=== PATIENT | male | born 1945 | race Caucasian/White ===

== ENCOUNTER 2016-12-13 22:00 | Observation (INO) ==
[2016-12-13] MEDS ORDERED: LEVOFLOXACIN INJ 750 MG in PREMIX 1 EACH IV STA (22:37)
[2016-12-13] MEDS ORDERED: SODIUM CHLORIDE 0.9% 500 ML IV STA (22:37)
[2016-12-13] MEDS ORDERED: ONDANSETRON 4 MG/2 ML VIAL IV STA (22:37)
--- NOTE | 2016-12-13 22:45 | Emergency Department Note ---
Arrival - Arrival Chief Complaint: Abdominal / Flank Pain Stated Complaint: BOWEL BLOCKAGE/CANT URINATE ED Nursing Triage Note: C/O Constipation since Tuesday- unable to urinate today. Pt reports that he has noticed blood from his rectum, but feels it is due to the severe constipation he has. Mode of Arrival: Ambulatory Limitations: No Limitations Source: Patient Time Seen by Provider: 12/13/16 22:37 - History of Present Illness HPI Narrative: This 71-year-old white male presents approximately 3 days after onset of abdominal complaints. The patient primarily has had several days of increasing constipation and abdominal cramping associated with bright red blood per rectum with straining. However, in the last 8 hours he has had onset of acute urinary retention. This is with a background history of several weeks of decline in stream, and dysuria. He denies any hematuria, chills, or fever. In conjunction with his constipation is not a person that is particularly bothered by constipation nor any other GI process. Currently he is mildly nauseated but without yenni vomiting. He appears in no acute medical distress at this time. Onset (ago): hour(s) (Patient presents 8 hours post onset of symptoms) Allergies/Adverse Reactions: Allergies Allergy/AdvReac Type Severity Reaction Status Date / Time No Known Allergies Allergy Verified 12/13/16 23:02 Home Medications: Home Medications Medication Instructions Recorded Confirmed Type No Known Home Medications [No 12/13/16 12/13/16 History Known Home Medications] Review of System - Review of System 12 point system: reviewed and no additional remarkable complaints except as stated - Review of System Constitutional: Present: as per HPI Gastrointestinal: Present: as per HPI Genitourinary male: Present: as per HPI Medical,Surgical,& Family Hx - Social History Smoking Status: Never smoker Frequency of Alcohol Use: None Type of Drug Use: None Exam Physical Examination: GENERAL: Well developed, well nourished elderly white male that appears quite uncomfortable but in no acute distress. HEENT: Normocephalic. No trauma. Moist mucous membranes. EOMI. PERRLA. ENT NML NECK: Supple. No adenopathy. CARDIAC: Regular. No murmurs. Heart rate 100 CHEST: Clear to auscultation. No respiratory distress. O2 sat 97% ABDOMEN: Soft. Diffuse abdominal tenderness with particularly significant suprapubic tenderness associated with a palpable full bladder. Hyperactive bowel sounds were noted. EXTREMITIES: No trauma. Normal ROM. No pedal edema. SKIN: No diaphoresis. No rash. NEURO: Alert. Neuro intact. No focal deficits. Vital Signs: Vital Signs Temperature 97.0 F L 12/13/16 22:06 Pulse Rate 105 H 12/13/16 22:06 Respiratory Rate 22 12/13/16 22:06 Blood Pressure 152/90 12/13/16 22:06 O2 Sat by Pulse Oximetry 97 12/13/16 22:06 Course - Reevaluation(s) Reevaluation #1: Advised patient of significant constipation and in the face of urinary retention and elevated white blood cell count patient was advised admission for both GI cleanout and evaluation. - Consultations Consultation #1: Discussed with the hospitalist service who will admit for further evaluation treatment. Results - Labs CBC & BMP: 12/13/16 22:52 12/13/16 22:52 Labs: I reviewed the laboratory noted the elevated white blood cell count - Diagnostic Findings Procedure: Abdominal x-ray: image reviewed by me, report reviewed by me ( Horrendous fecal stasis), Chest x-ray: image reviewed by me, report reviewed by me (No acute disease) Disposition Clinical Impression: Prostatitis, Acute urinary retention, Severe constipation Case discussed with: patient, patient's family Disposition: Still a Patient Condition: Stable Time of Disposition: 23:42
[2016-12-13] MEDS ORDERED: TAMSULOSIN 0.4 MG CAPSULE PO SCH (23:00)
[2016-12-13 23:01] LABS: Basophils % 0.1 % (0.0-0.8); Hematocrit 43.3 VOL% (42.0-52.0); Hemoglobin 15.5 GM/DL (14.0-18.0); Immature Granulocytes % 0.3 %; Immature Granulocytes Absolute 0.04 #; Lymphocytes % 6.8 % (21.2-54.2); Mean Corpuscular HGB Conc 35.8 GM/DL (32-36); Mean Corpuscular Hemoglobin 32 PG (27-34); Mean Corpuscular Volume 89.5 FL (87-102); Monocytes # 0.9 10*3/uL (0.11-0.8); Monocytes % 6.1 % (1.7-12.7); Neutrophils # 12.7 10*3/uL (1.4-7.4); Neutrophils % 86.7 % (38.7-73.9); Platelet Count 275 T/CUMM (130-400); Red Blood Count 4.84 MC/CUMM (3.8-5.5); Red Cell Distribution Width 12.5 % (9.3-17.3); White Blood Count 14.6 T/CUMM (4-12)
[2016-12-13 23:26] LABS: Alanine Aminotransferase 21 U/L (16-61); Albumin 3.9 G/DL (3.4-5.0); Alkaline Phosphatase 97 U/L (45-117); Amylase 75 U/L (25-115); Aspartate Amino Transferase 19 U/L (0-37); Blood Urea Nitrogen 14 MG/DL (7-18); Glucose 161 MG/DL (74-106); Osmolality,Calculated 269.4 MOS/KG (273-304); Potassium 3.7 MMOL/L (3.5-5.1); Sodium 133 MMOL/L (136-145); Total Protein 7.2 G/DL (6.4-8.3); Troponin I Only < 0.015 NG/ML (0.00-0.045)
[2016-12-13] MEDS ORDERED: ONDANSETRON 4 MG/2 ML VIAL ONE (23:32)
[2016-12-13] MEDS ORDERED: TAMSULOSIN 0.4 MG CAPSULE PO ONE (23:32)
[2016-12-13] MEDS ORDERED: LEVOFLOXACIN INJ 150 ML IV ONE (23:32)
[2016-12-13 23:36] LABS: Lactic Acid 1.8 MMOL/L (0.4-2.0)
--- NOTE | 2016-12-13 23:52 | EKG Report ---
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
[2016-12-14] MEDS ORDERED: ACETAMINOPHEN 325 MG TABLET PO PRN (00:23)
[2016-12-14] MEDS ORDERED: ONDANSETRON 4 MG/2 ML VIAL IV PRN (00:23)
[2016-12-14] MEDS ORDERED: CLORAZEPATE 3.75 MG TABLET PO PRN (00:27)
[2016-12-14] MEDS ORDERED: SODIUM PHOSPHATE ENEMA 133 ML BOTTLE RECTAL PRN (00:27)
[2016-12-14] MEDS ORDERED: SODIUM CHLORIDE 0.9% 1,000 ML IV SCH (00:30)
--- NOTE | 2016-12-14 00:35 | Hospitalist History & Physical ---
Assessment and Plan (1) Constipation Status: Acute Current Visit: Yes (2) Urinary retention Status: Acute Current Visit: Yes (3) Prostatitis Status: Acute Current Visit: Yes (4) Anxiety Status: Acute Assessment and plan: Our plan for this patient will be admission to our service. We will schedule him home in some lactulose and a soapsuds enema. We are trying to get his bowels to move. He has a Grant in place now we will keep that. Will consult urology for further evaluation of his urinary retention. Hopefully we can get him back on the road fairly soon. Recheck a KUB in the morning Current Visit: Yes History of Present Illness Chief complaint: Abdominal pain and constipation History of present illness: Mr. Fuentes is a 71 year old male with past medical history significant for Mni re's disease who is traveling to our [facility] on his way back home to [place]. Patient reports that he has been constipated and got to where that he could not have a bowel movement. Discussed so bad to where he could not urinate either. He is trying to have a bowel movement and did have some blood. He reports dizziness. He reports that he is hungry. He has a history of dizziness that, comes and goes. Patient's reports that it is anxiety induced and he had to be on Valium in the past. Secondary to his urinary retention and clear constipation I was consulted to admit him. Home Medications Medication Instructions Recorded Confirmed Type No Known Home Medications [No 12/13/16 12/13/16 History Known Home Medications] Allergies Allergy/AdvReac Type Severity Reaction Status Date / Time No Known Allergies Allergy Verified 12/13/16 23:02 Medical,Surgical,& Family Hx - Medical History Other: History of: Miscellaneous Medical Problems (Mnire's disease anxiety dizziness) - Surgical History Surgical History: noncontributory (none) - Social History Smoking Status: Never smoker Frequency of Alcohol Use: None Type of Drug Use: None 12 point system: reviewed and no additional remarkable complaints except as stated Exam - Constitutional General appearance: normal weight - Head Head exam: Present: normal inspection - Eye Eye exam: Present: EOMI Pupils: Present: SUSAN - ENT ENT exam: Present: normal exam - Neck Neck exam: Present: normal inspection - Respiratory Respiratory exam: Present: clear to auscultation bilaterally - Cardiovascular Cardiovascular exam: Present: regular rate and rhythm - GI/Abdominal GI/Abdominal exam: Present: normal bowel sounds, tenderness ( particularly in the lower quadrants) - Extremities Exam Extremities exam: Present: normal inspection - Back Exam Back exam: Present: normal inspection - Psychiatric Psychiatric exam: Present: anxious - Skin Skin exam: Present: normal color Results - Labs CBC & BMP: 12/13/16 22:52 12/13/16 22:52
[2016-12-14] MEDS: DOCUSATE SODIUM 100 MG CAPSULE PO SCH ×2 (02:30→09:47)
[2016-12-14] MEDS: LACTULOSE 20 GM/30 ML UDCUP PO SCH ×2 (02:31→09:47)
--- NOTE | 2016-12-14 06:53 | XRay Report ---
Referring Physician: Luigi Fang Exam: XR abdomen 2V Date: December 13, 2016 at 10:45 AM Reason: Generalized abdominal pain Comparison: None Findings: There is mild scattered air within the bowel but no evidence of bowel obstruction. No free air is identified. The renal shadows are largely obscured. There is mild scoliosis, but no acute osseous process is seen. Impression: There is mild scattered air within the small bowel and colon but no evidence of bowel obstruction. PROCEDURE INTERPRETED AT [facility] DEPARTMENT OF RADIOLOGY Final Report Signed by: Dr. Alis Schmitz
[2016-12-14 06:54] LABS: Basophils % 0.1 % (0.0-0.8); Hematocrit 41.5 VOL% (42.0-52.0); Hemoglobin 14.4 GM/DL (14.0-18.0); Immature Granulocytes % 0.4 %; Immature Granulocytes Absolute 0.04 #; Lymphocytes % 9.5 % (21.2-54.2); Mean Corpuscular HGB Conc 34.7 GM/DL (32-36); Mean Corpuscular Hemoglobin 32 PG (27-34); Mean Platelet Volume 10.2 FL (9.6-12.0); Monocytes # 1.2 10*3/uL (0.11-0.8); Monocytes % 11.4 % (1.7-12.7); Neutrophils # 8.4 10*3/uL (1.4-7.4); Neutrophils % 78.6 % (38.7-73.9); Platelet Count 247 T/CUMM (130-400); Red Blood Count 4.51 MC/CUMM (3.8-5.5); Red Cell Distribution Width 12.5 % (9.3-17.3); White Blood Count 10.6 T/CUMM (4-12)
--- NOTE | 2016-12-14 06:54 | XRay Report ---
Referring Physician: Luigi Fang Exam: XR chest 1V Date: December 13, 2016 at 10:45 PM Reason: Chest pain Comparison: None Findings: The cardiac silhouette is normal in size. A large hiatal hernia is suspected. There is likely minimal atelectasis adjacent to the hiatal hernia, but the lungs are otherwise clear. No pneumothorax or pleural effusion is identified. No acute osseous process is seen. Impression: Probable large hiatal hernia with minimal adjacent atelectasis. PROCEDURE INTERPRETED AT [facility] DEPARTMENT OF RADIOLOGY Final Report Signed by: Dr. Alis Schmitz
[2016-12-14 07:24] LABS: Calcium 8.9 MG/DL (8.5-10.1); Osmolality,Calculated 281.3 MOS/KG (273-304); Potassium 4.3 MMOL/L (3.5-5.1)
--- NOTE | 2016-12-14 07:50 | Urology Consultation ---
History of Present Illness - Data of Consult Consult date: 12/14/16 - Consult Narrative History of present illness: Mr. Fuentes is a 71 year old male This 71-year-old white male was from out of [facility] and passing through [facility] when he developed constipation and urinary retention and was admitted for treatment. The patient denies any difficulty voiding prior to going into urinary retention he has no past history of any serious urological problems. He has not been screened for prostate cancer and has no family history of prostate cancer. He has a Grant catheter in at the present time. His creatinine is normal and his PSA was noted be elevated at 19. I discussed the PSA elevation with him and the possibility of prostate cancer and the importance that he have a follow-up of this. There is no urinalysis available at this time to determine if there is evidence of urinary tract infection which could cause the PSA elevation .He is currently on antibiotics. I am going to get a urinalysis today and increase his Flomax to twice a day and DC the Grant catheter for trial of voiding. The patient wants to be discharged and if he can void well enough he can go home without the Grant catheter if he is unable to void I recommended he go home with the Grant catheter and a leg bag. I would also discharge him on Flomax even if he goes home with the Grant CC: Reyna Caba MD - Home Medications and Allergies Home Medications: Home Medications Medication Instructions Recorded Confirmed Type No Known Home Medications [No 12/13/16 12/13/16 History Known Home Medications] Allergies/Adverse Reactions: Allergies Allergy/AdvReac Type Severity Reaction Status Date / Time No Known Allergies Allergy Verified 12/13/16 23:02 Exam - Constitutional Vitals: Period Temp Pulse Resp BP Sys/[place] Pulse Ox Last 24 Hr 97.3 F-98.1 F 75-84 20-20 120-124/69-76 95-96 Results - Labs CBC & BMP: 12/14/16 06:07 12/14/16 06:07
[2016-12-14] MEDS ORDERED: PANTOPRAZOLE 40 MG TABLET PO SCH (09:00)
[2016-12-14] MEDS ORDERED: ENOXAPARIN 40 MG/0.4 ML SYRINGE SUBCUT SCH (09:00)
[2016-12-14] MEDS ORDERED: TAMSULOSIN 0.4 MG CAPSULE PO SCH (09:00)
--- NOTE | 2016-12-14 10:41 | XRay Report ---
XR KUB Indication: Constipation Comparison: Abdominal x-ray dated December 13, 2016 Technique: Frontal views of the abdomen Findings: Prominent hiatal hernia suggested. Nonspecific nonobstructive bowel gas pattern. Moderate amount of fecal material within the distal colon could reflect constipation. Osseous structures appear unchanged. Presumed pelvic phleboliths. IMPRESSION: As above. PROCEDURE INTERPRETED AT [facility] DEPARTMENT OF RADIOLOGY Final Report Signed by: Dr Cam Solorzano
[2016-12-14 12:10] LABS: Apearance,Urine CLEAR (Clear); Bilirubin,Urine Negative (Negative); Blood, Urine Moderate mg/dL (Negative); Glucose,Urine (UA) Negative (Negative); Ketones,Urine Negative (Negative); Mucus,Urine Occasional /LPF (Occasional); Nitrite,Urine Negative (Negative); Protein,Urine Negative; RBC,Urine 25 /HPF (0-4); Squamous Epithelial Cell,Urine Occasional /HPF (0-10); Urine Color Yellow (Yellow); Urine Specific Gravity 1.006 (1.001-1.035); Urine Urobilinogen < 2.0 EU/DL (0.2-1.0); WBC,Urine 39 /HPF (0-6)
--- NOTE | 2016-12-14 13:08 | Discharge Summary ---
Hospital Course - Hospital Course Hospital Course: Mr Fuentes was admitted with complaints of urinary retention and constipation. KUB in ER was unremarkable. He was started on laxatives and IV antibiotics for pyuria. Lion was placed and he was initiated on flomax BID. He was seen in consultation by Urology who discontinued the lion catheter. He tolerated this well no about 100cc of residual. By discharge he had met maximum benefit of hospitalization. He will be discharged with flomax and levaquin. I spent 35 minutes coordinating this discharge. - Time spent with patient Time with patient DS: Greater than 30 minutes Discharge Plan - Discharge Data Disposition: Disch To Home/Self Care Condition at Discharge: Stable Discharge Diet: advance to your usual diet Activity: resume usual activities as tolerated - Discharge Medications New Tamsulosin [Flomax] 0.4 mg PO BID #120 capsule Levofloxacin Tab [Levaquin Tab] 500 mg PO DAILY #7 tablet - Follow Up or Referral - Forms/Instructions Exam - Constitutional Vitals: Period Temp Pulse Resp BP Sys/[place] Pulse Ox Last 24 Hr 97.3 F-98.5 F 71-84 14-20 105-124/63-76 95-96 General appearance: normal weight, no acute distress - Head Head exam: Present: normal inspection, normocephalic, atraumatic - Eye Eye exam: Present: EOMI Pupils: Present: SUSAN - ENT ENT exam: Present: normal exam - Neck Neck exam: Present: normal inspection - Respiratory Respiratory exam: Present: clear to auscultation bilaterally. Absent: accessory muscle use, prolonged expiratory phase, wheezes - Cardiovascular Cardiovascular exam: Present: regular rate and rhythm. Absent: bradycardia, irregular rhythm, systolic murmur - GI/Abdominal GI/Abdominal exam: Present: normal bowel sounds. Absent: ascites, hypoactive bowel sounds, tenderness - Extremities Exam Extremities exam: Present: normal inspection Discharge Results Procedures and tests throughout hospitalization: Pending Orders 12/14/16 Urine Culture Routine Labs on day of discharge: Labs from last 24 hours 12/14/16 12/14/16 12/14/16 11:45 06:07 06:07 WBC 10.6 RBC 4.51 Hgb 14.4 Hct 41.5 L MCV 92.0 MCH 32 MCHC 34.7 RDW 12.5 Plt Count 247 MPV 10.2 Neut % (Auto) 78.6 H Lymph % (Auto) 9.5 L [place] % (Auto) 11.4 Eos % (Auto) 0.0 Baso % (Auto) 0.1 Neut # (Auto) 8.4 H Lymph # (Auto) 1.0 L [place] # (Auto) 1.2 H Eos # (Auto) 0.0 Baso # (Auto) 0.0 Immature Gran % 0.4 Nucleated RBC % 0.0 Immature Gran # 0.04 Nucleated RBCs # 0.00 Sodium 141 Potassium 4.3 Chloride 106 Carbon Dioxide 26 Anion Gap 13.3 BUN 12 Creatinine 0.90 GFR Calculation 89 BUN/Creatinine Ratio 13.00 Glucose 117 H Calculated Osmolality 281.3 Calcium 8.9 Urine Color Yellow Urine Appearance Clear Urine pH 5.0 Ur Specific [place] 1.006 Urine Protein Negative Urine Glucose (UA) Negative Urine Ketones Negative Urine Blood Moderate Urine Nitrate Negative Urine Bilirubin Negative Urine Urobilinogen < 2.0 H Urine Leukocytes Small H Urine RBC 25 Urine WBC 39 Ur Squamous Epith Cells Occasional Urine Mucus Occasional Ur Culture Indicated? Results to follow DS: Provider Date of admission: 12/13/16 23:39 Primary care physician: . No PCP Attending physician on admission: Jairo Lewis MD Consults: 12/14/16 00:23 Consult to Physician [CONS] Routine Comment: UROLOGIST EDUCATION LIAISON Consulting Provider: Michael Darby Consult to Specialist Group: Urology When should Consulting Provider be notified: In am Person Notified: neha Date Notified: 12/14/16 Time Notified: 09:01 Discharging clinician: Reyna Caba MD Expected date of discharge: 12/14/16
[2016-12-14 13:56] VITALS: BP 105/59
[2016-12-14] MEDS ORDERED: LEVOFLOXACIN INJ 500 MG in PREMIX 1 EACH IV SCH (21:00)
== END 2016-12-14 14:08 | disposition home or self-care (01) ==
LOC: N.ED 22:00 → INTOOBSV 23:39 → N.EDINP 23:39 → SUATTDRO 23:39 → N.2E 12-14 01:20
PROVIDERS: ADMIT Internal Medicine; ATTEND Internal Medicine